=== PATIENT | female | born 1975 ===

== ENCOUNTER 2016-10-03 02:03 | Observation (INO) | payer OTHER ==
[2016-10-03] MEDS ORDERED: Albuterol-Ipratrop 3 mg / 0.5 (3 ml) UD INH STA (02:38)
[2016-10-03] MEDS ORDERED: Albuterol-Ipratrop 3 mg / 0.5 (3 ml) UD ONE (02:52)
[2016-10-03 02:58] LABS: BASO % 0.4 % (0.0-2.0); EOS # 0.1 K/uL (0.0-0.7); EOS % 1.2 % (0.0-4.0); HEMATOCRIT 37.5 % (34.0-47.0); LYMPH # 2.7 K/uL (1.0-4.3); LYMPH % 36.4 % (20.0-40.0); MEAN CELL VOLUME 84.7 fl (81.0-99.0); MEAN CORPUSCULAR HEMOGLOBIN 28.6 pg (27.0-31.0); MEAN CORPUSCULAR HGB CONC 33.8 g/dL (33.0-37.0); MEAN PLATELET VOLUME 8.5 fl (7.2-11.7); MONO # 0.9 K/uL (0.0-0.8); MONO % 11.7 % (0.0-10.0); NEUT # 3.7 K/uL (1.8-7.0); NEUT % 50.3 % (50.0-75.0); NRBC % 0.2 % (0.0-0.0); RED CELL DISTRIBUTION WIDTH 12.9 % (11.5-14.5); WHITE BLOOD COUNT 7.4 K/uL (4.8-10.8)
--- NOTE | 2016-10-03 03:00 | ED PDOC ---
HPI: Chest Pain Time Seen by Provider: 10/03/16 02:16 Chief Complaint (Nursing): Chest Pain Chief Complaint (Provider): SOB/CP History Per: Patient History/Exam Limitations: no limitations Onset/Duration Of Symptoms: Days (1 week) Current Symptoms Are (Timing): Still Present Severity: Moderate Additional Complaint(s): Madison Forte is a 40 y/o female, with a past medical history of anxiety, presenting to the ER on 10/03/2016 with intermittent shortness of breath x1 week and chest pain. Patient states sudden onset of chest pain is localized to the sub-sternum region. Patient additionally reports having chest pain in the past when she was diagnosed with anxiety, but felt exacerbation today, prompting a visit to the ED. Denies any associated nausea, vomiting, diarrhea, or diaphoresis. Past Medical History Reviewed: Historical Data, Nursing Documentation, Vital Signs Vital Signs: Last Vital Signs Temp 98.6 F 10/04/16 08:00 Pulse 58 L 10/04/16 09:00 Resp 20 10/04/16 08:00 BP 120/66 10/04/16 08:00 Pulse Ox 95 10/04/16 08:00 - Medical History PMH: Anxiety Denies: Chronic Kidney Disease - Surgical History Surgical History: No Surg Hx - Family History Family History: States: Unknown Family Hx - Social History Current smoker - smoking cessation education provided: Yes (1/2 pack/day) - Immunization History Hx Tetanus Toxoid Vaccination: No Hx Influenza Vaccination: No Hx Pneumococcal Vaccination: No - Home Medications Home Medications: Ambulatory Orders Medication Instructions Recorded No Known Home Med 10/03/16 - Allergies Allergies/Adverse Reactions: Allergies Allergy/AdvReac Type Severity Reaction Status Date / Time shrimp Allergy Verified 05/27/16 15:31 Review of Systems ROS Statement: Except As Marked, All Systems Reviewed And Found Negative Cardiovascular: Positive for: Chest Pain Respiratory: Positive for: Shortness of Breath Gastrointestinal: Negative for: Nausea, Vomiting, Diarrhea Physical Exam - Reviewed Nursing Documentation Reviewed: Yes Vital Signs Reviewed: Yes - Physical Exam Appears: Positive for: Non-toxic, No Acute Distress Head Exam: Positive for: ATRAUMATIC, NORMOCEPHALIC Skin: Positive for: Normal Color Eye Exam: Positive for: Normal appearance, EOMI, PERRL Neck: Positive for: Normal, Painless ROM, Supple Cardiovascular/Chest: Positive for: Regular Rate, Rhythm. Negative for: Murmur Respiratory: Positive for: Decreased Breath Sounds (decreased air entry to bases bilat ) Extremity: Positive for: Normal ROM. Negative for: Deformity Neurologic/Psych: Positive for: Alert, Oriented (x3). Negative for: Motor/ Sensory Deficits - Laboratory Results Result Diagrams: 10/03/16 02:55 10/03/16 02:55 - ECG O2 Sat by Pulse Oximetry: 99 (RA) Pulse Ox Interpretation: Normal Medical Decision Making Medical Decision Makin:16 Initial Impression- 40 y/o female with CP and SOB in setting of smoking and known anxiety. Initial Plan- * EKG * CMP * Drug Screen * Urine preg * Urine dip * CBC w/ differential * D-Dimer * CXR * Albuterol 3 ml INH * Re-assess 04:37 Labs were reviewed with no clinically significant abnormalities with exception of drug screen that showed positive for amphetamines, cocaine, cannabis, and opiates. CXR reviewed, showed no acute diseases. Given that the pt is UDS positive for cocaine, she will be placed on observation for chest pain. Case was discussed with Dr. Ling, medical service supervisor [employer] who will admit patient. Condition is fair. Clinical Impression- Chest Pain and Cocaine Abuse. Documented by Willian Medina, acting as a scribe for David Preston MD. All medical record entries made by the Scribe were at my direction and personally dictated by me. I have reviewed the chart and agree that the record accurately reflects my personal performance of the history, physical exam, medical decision making, and the department course for this patient. I have also personally directed, reviewed, and agree with the discharge instructions and disposition. Disposition - Clinical Impression Clinical Impression: Chest pain, Cocaine abuse - Patient ED Disposition Is Patient to be Admitted: Yes - Disposition Disposition Time: 04:40 Condition: FAIR - Pt Status Changed To: Hospital Disposition Of: Observation - POA Present On Arrival: None
[2016-10-03 03:10] LABS: ALB/GLOB RATIO 1.2 (1.0-2.1); ALKALINE PHOSPHATASE 58 U/L (38-126); ALT/SGPT 37 U/L (9-52); AST/SGOT 31 U/L (14-36); BILIRUBIN,TOTAL 0.5 mg/dl (0.2-1.3); BLOOD UREA NITROGEN 13 mg/dl (7-17); CALCIUM 9.8 mg/dL (8.4-10.2); CARBON DIOXIDE 27 mmol/L (22-30); CHLORIDE 103 mmol/L (98-107); GFR AFRICAN-AMERICAN > 60; GLUCOSE,RANDOM 98 mg/dL (65-105); POTASSIUM 4.3 MMOL/L (3.6-5.0); SODIUM 145 mmol/l (132-148); TOTAL PROTEIN 8.4 G/DL (6.3-8.2)
--- NOTE | 2016-10-03 08:59 | RAD ---
HISTORY: sob COMPARISON: Comparison is made to 03/09/2015 TECHNIQUE: Chest PA and lateral FINDINGS: LUNGS: No focal infiltrate or consolidation seen in the lungs. No significant interval change. PLEURA: No significant pleural effusion identified. No pneumothorax apparent. CARDIOVASCULAR: Normal. OSSEOUS STRUCTURES: No significant abnormalities. VISUALIZED UPPER ABDOMEN: Normal. OTHER FINDINGS: None. IMPRESSION: No active disease. No significant interval change.
--- NOTE | 2016-10-03 10:57 | CARD ---
APPROVED REPORT EKG Measurement Heart [id number] IN [id number] <Conclusion> Sinus bradycardia Otherwise normal ECG
[2016-10-03] MEDS: Enoxaparin 40 mg Syringe SC SCH (11:27)
--- NOTE | 2016-10-03 11:28 | CP.PCM.CON ---
History of Present Illness - History of Present Illness History of Present Illness: 40 y/o w/f admitted with chest pain Pt claims that she has had dull aching pain retrosternally for > 1 week the pain is constant and not related to exertion +/- associated with SOB The pain is reproducible on palpation EKG: Sinus Bradycardia Troponin: neg x 2 + cocaine abuse + Smoker Review of Systems - Cardiovascular Cardiovascular: Chest Pain - Respiratory Respiratory: Dyspnea Past Patient History - Past Social History Smoking Status: Light Smoker < 10 Cigarettes Daily Drugs: Cocaine - CARDIAC Hx Cardiac Disorders: No - PULMONARY Hx Respiratory Disorders: No - NEUROLOGICAL Hx Neurological Disorder: No - HEENT Hx HEENT Problems: No - RENAL Hx Chronic Kidney Disease: No - ENDOCRINE/METABOLIC Hx Endocrine Disorders: No - HEMATOLOGICAL/ONCOLOGICAL Hx Blood Disorders: No - INTEGUMENTARY Hx Dermatological Problems: No - MUSCULOSKELETAL/RHEUMATOLOGICAL Hx Musculoskeletal Disorders: No - GASTROINTESTINAL Hx Gastrointestinal Disorders: No - GENITOURINARY/GYNECOLOGICAL Hx Genitourinary Disorders: No - PSYCHIATRIC Hx Psychophysiologic Disorder: Yes - SURGICAL HISTORY Hx Surgeries: No - ANESTHESIA Hx Anesthesia: No Meds Allergies/Adverse Reactions: Allergies Allergy/AdvReac Type Severity Reaction Status Date / Time shrimp Allergy Verified 05/27/16 15:31 - Medications Medications: Current Medications Acetaminophen (Tylenol 325mg Tab) 650 mg PO Q4 PRN PRN Reason: Headache Aspirin (Aspirin Chewable) 81 mg PO DAILY [facility] Enoxaparin Sodium (Lovenox) 40 mg SC DAILY [facility] PRN Reason: Protocol Nitroglycerin (Nitro-Bid 2% Oint) 1 in TOP Q6 [facility] Physical Exam - Respiratory Exam Respiratory Exam: NORMAL BREATHING PATTERN - Cardiovascular Exam Cardiovascular Exam: REGULAR RHYTHM Additional comments: Chest wall is painful to palpate Results - Vital Signs Recent Vital Signs: Last Vital Signs Temp 98.3 F 10/03/16 09:22 Pulse 57 L 10/03/16 09:22 Resp 18 10/03/16 09:22 BP 115/58 L 10/03/16 09:22 Pulse Ox 97 10/03/16 09:22 - Labs Result Diagrams: 10/03/16 02:55 10/03/16 02:55 Labs: Laboratory Results - last 24 hr 10/03/16 08:15 Troponin I 0.0180 Assessment & Plan (1) Chest pain Assessment and Plan: The chest pain appears to be Musculoskeletal in origin palpation of the chest wall reproduces the pain Pt may be discharged to f/u as an out aptient Status: Acute (2) Cocaine abuse Status: Acute (3) Polysubstance abuse Status: Acute
[2016-10-03] MEDS ORDERED: Nitroglycerin 2% 1GM UD TOP SCH ×2 (11:32→16:00)
--- NOTE | 2016-10-03 13:02 | HP ---
HISTORY OF PRESENT ILLNESS: The patient is a 40-year-old female admitted via the Emergency Room rakan use of chest pains for 1 week prior to presentation, worse on the day of admission. She indicates th at she had used cocaine and smokes cigarettes heavily. She also thought it was because of her anxiet y, but because the pain persisted she showed up in the Emergency Room. PAST MEDICAL HISTORY: Syncope, substance abuse and anxiety disorder. FAMILY HISTORY: Unremarkable. SOCIAL HISTORY: She does not drink, but indicates that she uses cocaine and smokes cigarettes. REVIEW OF SYSTEMS: Essentially remarkable for occasional chest pains. PHYSICAL EXAMINATION: GENERAL: The patient is alert, oriented, appears to be presently in no apparent distress. VITAL SIGNS: Blood pressure 115/58, pulse of 57, respiratory rate 20. She is afebrile. O2 sat 97% on room air. SKIN: Shows fair turgor. HEENT: Pupils equal, react to light and accommodation. Mouth shows fair hygiene. NECK: JVP flat. LUNGS: Clear. HEART: Regular. There is reproducible anterior chest wall tenderness. BREASTS: Normal. ABDOMEN: Soft, nontender, no organomegaly. EXTREMITIES: Shows no edema or cyanosis. CENTRAL NERVOUS SYSTEM: Grossly intact. RECTAL AND GENITALIA: Deferred. LABORATORY DATA: Reviewed and appear unremarkable including troponin. EKG: Regular sinus rhythm wi th sinus arrhythmias, cannot rule out anterior infarct, age undetermined. Chest x-ray: No acute car diopulmonary pathology. IMPRESSION: Chest pain, rule out acute coronary artery syndrome. One also has to rule out cocaine-i nduced coronary vasospasm, history of polysubstance abuse, history of anxiety disorder. PLAN: Cardiology evaluation, monitor patient in telemetry. Discharge home once acute myocardial inf arction is ruled out. Advised cessation of drug use. Wally Ling MD cc: 62 TT: 10/03/2016 13:01:50 wy
--- NOTE | 2016-10-03 14:01 | CARD ---
APPROVED REPORT EKG Measurement Heart [id number] SD 146P53 [id number] <Conclusion> Normal sinus rhythm with sinus arrhythmia Cannot rule out Anterior infarct, age undetermined Abnormal ECG
[2016-10-03] MEDS ORDERED: Influenza Vaccine(5yr & older) 0.5 ML/45 MCG IM ONE (15:07)
[2016-10-03] MEDS ORDERED: Pneumococcal 23-Valent Vaccine IM ONE (15:07)
--- NOTE | 2016-10-03 16:09 | CARD ---
APPROVED REPORT EXAM: Two-dimensional and M-mode echocardiogram with Doppler and color Doppler. Other Information Quality : GoodRhythm : NSR INDICATION Chest Pain 2D DIMENSIONS IVSd1.13 (0.7-1.1cm)LVDd4.79 (3.9-5.9cm) LVOT Diameter2.02 (1.8-2.4cm)PWd0.88 (0.7-1.1cm) IVSs1.25 (0.8-1.2cm)LVDs3.49 (2.5-4.0cm) FS (%) 27.1 %PWs1.34 (0.8-1.2cm) M-Mode DIMENSIONS Left Atrium (MM)4.11 (2.5-4.0cm)IVSd0.80 (0.7-1.1cm) Aortic Root2.87 (2.2-3.7cm)LVDd4.94 (4.0-5.6cm) Aortic Cusp Exc.2.12 (1.5-2.0cm)PWd0.88 (0.7-1.1cm) IVSs1.38 cmFS (%) 39 % LVDs3.01 (2.0-3.8cm)PWs1.57 cm Mitral Valve MV E Yiqplfas579.2cm/sMV DECEL [id number] A Rlzpofzi55.0cm/s MV RWH48ncI/A ratio1.4MVA (PHT)3.42cm2 TDI Lateral E' Peak V12.55cm/sMedial E' Peak V13.61cm/sE/Lateral E'8.2 E/Medial E'7.6 Pulmonary Valve PV Peak Oomrksjm242.5cm/s LEFT VENTRICLE The left ventricle is normal size. There is normal left ventricular wall thickness. The left ventricular function is normal. The left ventricular ejection fraction is within the normal range. The Ejection Fraction is 60-65%. There is normal LV segmental wall motion. The left ventricular diastolic function is normal. No left ventricle thrombus noted on this study. RIGHT VENTRICLE The right ventricle is normal size. There is normal right ventricular wall thickness. The right ventricular systolic function is normal. ATRIA The left atrium size is normal. The right atrium size is normal. The interatrial septum is intact with no evidence for an atrial septal defect. AORTIC VALVE The aortic valve is normal in structure and function. No aortic regurgitation is present. There is no aortic valvular stenosis. There is no aortic valvular vegetation. MITRAL VALVE The mitral valve is normal in structure and function. A moderate mitral valve prolapse is present. There is no mitral valve stenosis. Mitral regurgitation is mild to moderate. TRICUSPID VALVE The tricuspid valve is normal in structure and function. There is no tricuspid valve regurgitation noted. There is no tricuspid valve prolapse or vegetation. There is no tricuspid valve stenosis. PULMONIC VALVE The pulmonary valve is normal in structure and function. There is no pulmonic valvular regurgitation. There is no pulmonic valvular stenosis. GREAT VESSELS The aortic root is normal in size. The IVC is normal in size and collapses >50% with inspiration. PERICARDIAL EFFUSION The pericardium appears normal. There is no pleural effusion. <Conclusion> The left ventricle is normal size. The left ventricular function is normal. The left ventricular ejection fraction is within the normal range. The Ejection Fraction is 60-65%. A moderate mitral valve prolapse is present. Mitral regurgitation is mild to moderate.
[2016-10-04 05:24] VITALS: RESP 20
[2016-10-04 07:57] LABS: CHOLESTEROL 161 mg/dL (0-199)
[2016-10-04 08:08] VITALS: BP 120/66; PULSE 58; TEMP 98.6
[2016-10-04] MEDS: Enoxaparin 40 mg Syringe SC SCH (08:32)
--- NOTE | 2016-10-04 09:53 | CP.PCM.DIS ---
Provider - Provider Date of Admission: 10/03/16 18:23 Attending physician: Wally Ling MD Primary care physician: Shaik Nara AGUIRRE Time Spent in preparation of Discharge (in minutes): 32 Diagnosis - Discharge Diagnosis (1) Chest pain Status: Acute (2) Cocaine abuse Status: Acute (3) Anxiety Status: Acute (4) Polysubstance abuse Status: Acute Hospital Course - Lab Results Lab Results: Most Recent Lab Values WBC 7.4 K/uL (4.8-10.8) 10/03/16 02:55 RBC 4.43 Mil/uL (3.80-5.20) 10/03/16 02:55 Hgb 12.6 g/dL (12.0-16.0) 10/03/16 02:55 Hct 37.5 % (34.0-47.0) 10/03/16 02:55 MCV 84.7 fl (81.0-99.0) D 10/03/16 02:55 MCH 28.6 pg (27.0-31.0) 10/03/16 02:55 MCHC 33.8 g/dL (33.0-37.0) 10/03/16 02:55 RDW 12.9 % (11.5-14.5) 10/03/16 02:55 Plt Count 300 K/uL (130-400) 10/03/16 02:55 MPV 8.5 fl (7.2-11.7) 10/03/16 02:55 Neut % (Auto) 50.3 % (50.0-75.0) 10/03/16 02:55 Lymph % (Auto) 36.4 % (20.0-40.0) 10/03/16 02:55 Hood % (Auto) 11.7 % (0.0-10.0) H 10/03/16 02:55 Eos % (Auto) 1.2 % (0.0-4.0) 10/03/16 02:55 Baso % (Auto) 0.4 % (0.0-2.0) 10/03/16 02:55 Neut # 3.7 K/uL (1.8-7.0) 10/03/16 02:55 Lymph # 2.7 K/uL (1.0-4.3) 10/03/16 02:55 Hood # 0.9 K/uL (0.0-0.8) H 10/03/16 02:55 Eos # 0.1 K/uL (0.0-0.7) 10/03/16 02:55 Baso # 0.0 K/uL (0.0-0.2) 10/03/16 02:55 D-Dimer, Quantitative 0.23 mg/L FEU (0-0.50) 10/03/16 02:55 Sodium 145 mmol/l (132-148) 10/03/16 02:55 Potassium 4.3 MMOL/L (3.6-5.0) 10/03/16 02:55 Chloride 103 mmol/L (98-107) 10/03/16 02:55 Carbon Dioxide 27 mmol/L (22-30) 10/03/16 02:55 Anion Gap 19 (10-20) 10/03/16 02:55 BUN 13 mg/dl (7-17) 10/03/16 02:55 Creatinine 0.7 mg/dL (0.7-1.2) 10/03/16 02:55 Est GFR ( Amer) > 60 10/03/16 02:55 Est GFR (Non-Af Amer) > 60 10/03/16 02:55 Random Glucose 98 mg/dL (65-105) 10/03/16 02:55 Calcium 9.8 mg/dL (8.4-10.2) 10/03/16 02:55 Total Bilirubin 0.5 mg/dl (0.2-1.3) 10/03/16 02:55 AST 31 U/L (14-36) 10/03/16 02:55 ALT 37 U/L (9-52) 10/03/16 02:55 Alkaline Phosphatase 58 U/L (38-126) 10/03/16 02:55 Troponin I < 0.0120 ng/mL (0.00-0.120) 10/03/16 15:00 Total Protein 8.4 G/DL (6.3-8.2) H 10/03/16 02:55 Albumin 4.5 g/dL (3.5-5.0) 10/03/16 02:55 Globulin 3.8 gm/dL (2.2-3.9) 10/03/16 02:55 Albumin/Globulin Ratio 1.2 (1.0-2.1) 10/03/16 02:55 Triglycerides 75 mg/DL (0-149) 10/04/16 06:00 Cholesterol 161 mg/dL (0-199) 10/04/16 06:00 LDL Cholesterol Direct 77 mg/dL (0-129) 10/04/16 06:00 HDL Cholesterol 57 MG/DL (30-70) 10/04/16 06:00 Urine Opiates Screen Positive (NEGATIVE) H 10/03/16 02:38 Urine Methadone Screen Negative (NEGATIVE) 10/03/16 02:38 Ur Barbiturates Screen Negative (NEGATIVE) 10/03/16 02:38 Ur Phencyclidine Scrn Negative (NEGATIVE) 10/03/16 02:38 Ur Amphetamines Screen Positive (NEGATIVE) H 10/03/16 02:38 U Benzodiazepines Scrn Negative (NEGATIVE) 10/03/16 02:38 U Oth Cocaine Metabols Positive (NEGATIVE) H 10/03/16 02:38 U Cannabinoids Screen Positive (NEGATIVE) H 10/03/16 02:38 - Hospital Course Hospital Course: CHEST PAIN FREE TELE-RSR Discharge Exam - Head Exam Head Exam: ATRAUMATIC, NORMOCEPHALIC - Eye Exam Eye Exam: EOMI, Normal appearance, PERRL Pupil Exam: NORMAL ACCOMODATION, PERRL - GI/Abdominal Exam GI & Abdominal Exam: Normal Bowel Sounds - Rectal Exam Rectal Exam: NORMAL INSPECTION - Neurological Exam Neurological exam: Alert, CN II-XII Intact, Normal Gait, Oriented x3, Reflexes Normal - Psychiatric Exam Psychiatric exam: Normal Affect, Normal Mood - Skin Skin Exam: Dry, Intact, Normal Color, Warm Discharge Plan - Follow Up Plan Condition: FAIR Disposition: HOME/ ROUTINE Patient education suggested?: Yes Additional Instructions: UP WITH PMD FOR FURTHER WORKUP INCLUDING STRESS TEST AVOID ILLICIT DRUGS Referrals: Shaik Bains MD [Primary Care Provider] -
--- NOTE | 2016-10-04 15:03 | PQF GENQUE ---
Dr. Ling, In agreement with Cardiology:The chest pain appears to be Musculoskeletal in origin OR: Other etiology of Chest Pain OR: Unable to determine H and P: Impression:Chest pain, rule out acute coronary artery syndrome. One also has to rule out cocaine -induced coronary vasospasm, history of polysubstance abuse, history of anxiety disorder. PLAN: Cardiology evaluation, monitor patient in telemetry. D/C home once acute VT is r/o. Advised cessation of drug use. Cardiology consult ;Assessment and Plan: The chest pain appears to be Musculoskeletal in origin palpation of the chest wall reproduces the pain ;may be d/c ed to f/u as an out pt. Status: Acute (2) Cocaine abuse Status: Acute (3) Polysubstance abuse Status: Acute Discharge Summary; Chest Pain: Acute ;Hospital Course:Chest Pain Free Tele-RSR urine toxicology:opiates,,amphetamines, cocaine and cannabinoids:positive 10/03/16:EKG: NSR with sinus arrthymia, Cannot rule out Anterior infarct, age undetermined 10/03/16: repeat EKG: Sinus bradycardia This form is a permanent part of the medical record Clarification of your documentation is requested to better reflect the severity of illness and intensity of treatment of your patient. Indicators present [] Specify: [] [] Specify: [] [] Specify: [] [] Specify: [] Location in the medical record that reflects the above clinical findings: [] Treatment Provided: [] PHYSICIAN'S RESPONSE Based on your medical judgment of the clinical indicators outlined above please clarify the following: [] Practitioner response [] If unable to determine, please check the box, sign and date. Present On Admission (POA) Indicator: [] Present at the time of admission [] Not present at the time of admission [] Clinically Undetermined In responding to this query, please exercise your independent professional judgment. The fact that a question is asked does not imply that any particular answer is desired or expected. Thank you for your clarification on this documentation. If you have any questions please call. * Thank you, Ching De Leon RN BSN ext. #[phone] MTDD
[2016-10-10 20:46] VITALS: O2SAT 99
== END 2016-10-04 14:00 | disposition home or self-care (01) ==
LOC: H.ER 02:03 → H.ERHOLD 03:24 → H.TEL 09:06 → OBSVTOIN 18:23 → INTOOBSV 18:23
PROVIDERS: ADMIT Internal Medicine Pulmonary Disease; ATTEND Internal Medicine Pulmonary Disease
DX: R07.89 Other chest pain (principal); F11.10 Opioid abuse, uncomplicated; F14.10 Cocaine abuse, uncomplicated; F15.10 Other stimulant abuse, uncomplicated; F17.210 Nicotine dependence, cigarettes, uncomplicated; F41.9 Anxiety disorder, unspecified; F12.10 Cannabis abuse, uncomplicated; Z91.013 Allergy to seafood; Z23 Encounter for immunization